=== PATIENT | male | born 1975 | race Caucasian/White ===

== ENCOUNTER 2023-02-11 09:28 | Inpatient (IN) | payer OTHER, SELFPAY ==
[2023-02-11] VITALS (14 sets, daily range): BP systolic 107–129; BP diastolic 65–99; PULSE 63–84; RESP 13–27; TEMP 36.3–36.6; O2SAT 95–100; BMI 32.7
--- NOTE | ~2023-02-11 | CT_ITS ---
EXAMINATION: CT abdomen pelvis w con DATE: 02/11/2023 11:37 INDICATION: Generalized abdomen pain. Elevated white blood cell count. TECHNIQUE: Computed tomography (CT) of the abdomen and pelvis was performed with 100 cc Omnipaque 350 intravenous contrast. The dose-length product was 1131.05 mGy-cm. Automated exposure control and ite rative reconstruction technique were employed. COMPARISON: None. FINDINGS: Lung bases are unremarkable. Heart size normal. No significant pleural or pericardial effus ion. No significant vascular abnormality. No lymphadenopathy. Linear wedge-shaped area of geographic hypodensity in the spleen is present. No perisplenic fluid col lections. Fatty infiltration of the liver. The pancreas, adrenal glands and kidneys are unremarkable. No significant hydronephrosis. Gallbladder is present. Colonic diverticulosis without evidence for d iverticulitis. Gallbladder is present. No free air or free fluid. Mild wedge-shaped deformity of the T12 and L1 vertebral, likely chronic. Mild lumbar spondylosis. IMPRESSION: 1. Geographic area of hypodensity of the spleen with wedge-shaped appearance. Differential diagnosis includes splenic infarction, infection and less likely posttraumatic laceration. 2: Hepatic steatosis. Reviewed, dictated and finalized at location B. IMPRESSION: 1. Geographic area of hypodensity of the spleen with wedge-shaped appearance. D ifferential diagnosis includes splenic infarction, infection and less likely po sttraumatic laceration. 2: Hepatic steatosis.
[2023-02-11 10:14] LABS: Appearance Urine Clear (Clear); Bilirubin Urine Negative (Negative); Blood Urine Negative (Negative); Color Urine Yellow (Yellow); Glucose Urine UA Negative (Negative); Ketones Urine Negative (Negative); Leukocyte Esterase Ur Negative LEU/UL (Negative); Nitrate Urine Negative (Negative); Protein Urine Negative (Negative); Specific Grav Ur 1.016 (1.001-1.035); Urobilinogen Urine 0.2 mg/dL (<2.0); pH Urine 7.5 (5.0-9.0)
[2023-02-11 10:16] LABS: Basophils Percent Auto 0.2 % (0.2-1.2); Eosinophils Percent Auto 0.2 % (0-4.4); Hematocrit 44.8 % (42.0-52.0); Hemoglobin 15.2 g/dL (14.0-18.0); Immature Granulocyte Absolute 0.04 K/mm3 (0.00-0.031); Immature Granulocyte Percent A 0.3 % (0-0.5); Lymphocytes Absolute Auto 1.73 K/mm3 (0.9-3.2); Mean Corpuscular HGB Conc 33.9 g/dl (32-36); Mean Corpuscular Hemoglobin 28.5 pg (26-34); Mean Corpuscular Volume 84.1 fl (80-100); Mean Platelet Volume 9.2 fl (7.4-10.4); Monocytes Absolute Auto 0.8 K/mm3 (0.1-0.6); Monocytes Percent Auto 6.3 % (2.6-8.5); Neutrophils Absolute Auto 10.6 K/mm3 (1.3-6.7); Platelet Count Result 241 k/mm3 (150-375); Red Blood Count 5.33 M/mm3 (4.6-6.20); Red Cell Distribution Width 12.6 % (11.5-14.5); White Blood Count 13.3 K/mm3 (4.5-10.0)
[2023-02-11 10:23] LABS: Alanine Aminotransferase 43 U/L (6-50); Albumin Level 4.5 g/dL (3.5-5.1); Alkaline Phosphatase 58 U/L (38-126); Anion Gap 5 mmol/L (8-16); Aspartate Amino Transferase 82 U/L (17-59); Bilirubin,Total 1.5 mg/dL (0.2-1.3); Blood Urea Nitrogen 9 mg/dL (9-20); Calcium 8.9 mg/dL (8.4-10.2); Carbon Dioxide 29 mmol/L (22-30); Chloride 99 mmol/L (98-107); Estimated CRCL calculation 165 ml/min; Estimated Glomerular Filt Rate > 60; Glucose 120 mg/dL (65-110); Lipase 279 U/L (23-300); Potassium 3.9 mmol/L (3.4-5.0); Sodium 133 mmol/L (137-145)
--- NOTE | 2023-02-11 10:34 | ED.ABDPAIN ---
HPI - Abdominal Pain General Chief Complaint: Abdominal Pain Stated Complaint: abd pain, N/V/D Time Seen by Provider: 02/11/23 10:03 Source: patient Mode of arrival: ambulatory Limitations: no limitations History of Present Illness HPI narrative: Lucio is a 47 year old male patient presenting to the ER today with c/o abdomen pain, nausea,vomiting, and diarrhea since 3pm yesterday. Reports that he thinks he may have food poising from a beef jerky he ate around 2pm yesterday. Rates his pain currently a 10/27. Related Data Home Medications Medication Instructions Recorded Confirmed No Home Medications 02/11/23 02/11/23 Allergies Allergy/AdvReac Type Severity Reaction Status Date / Time No Known Allergies Allergy Verified 02/11/23 16:13 Review of Systems Review of Systems: All systems reviewed & are unremarkable except as noted in HPI and below PMFSH Past Medical History Medical History (Updated 02/11/23 @ 18:21 by Argentina Cortes PA-C) Hypothyroidism No longer medication. Surgical History Surgical History (Updated 02/11/23 @ 18:19 by Argentina Cortes PA-C) History of appendectomy History of hernia repair Family History Family History Mother Non-Hodgkins lymphoma Social History Social History (Updated 02/11/23 @ 18:19 by Argentina Cortes PA-C) Social History: Surrogate medical decision maker: Valorie Gentile, spouse. Code status: Full code. Smoking status: Never smoker Alcohol intake: never Substance use: never Lack of Transportation: No Lack of Food: Never True Current Housing: I Have Housing Concerned About Future Housing: No Difficulty Paying Gas/Electric Bills: No Difficulty Paying for Meds: No Currently Unemployed: No Education: Associate Degree Difficulty w/ Childcare or Family Care: No Spiritual care concerns: No Comments At the time of my signature, I reviewed and agree with the nursing past medical, surgical, social, and family history. There is no relevant family history pertinent to the patient complaint. Exam Const: General: healthy appearing, no acute distress and alert Nutritional Appearance: obese Orientation/consciousness: patient oriented x3 Limitations: no limitations HENMT: Head: normal to inspection Chest: Chest palpation & inspection: normal inspection of the chest Resp: Effort & Inspection: normal respiratory effort Auscultation: clear to auscultation bilaterally Cardio: Rate: regular rate Rhythm: regular rhythm Other: s1 and s2 normal GI: Other: Soft, pliable, non-distended,bowel sounds present in all four quadrants, no organomegly, general abdomen tenderness diffuse, no CVAT tenderness, Course Course Emergency Course: Portions of this record may have been created with voice recognition software. Vital Signs Vital signs: Vital Signs Temperature 36.3 C L 02/11/23 09:37 Pulse Rate 70 02/11/23 09:37 Respiratory Rate 18 02/11/23 09:37 Blood Pressure 109/87 02/11/23 09:37 Pulse Oximetry 100 02/11/23 09:37 Oxygen Delivery Room Air 02/11/23 09:37 Temperature 36.6 C 02/11/23 16:13 Pulse Rate 75 02/11/23 16:13 Respiratory Rate 16 02/11/23 16:13 Blood Pressure 119/72 02/11/23 16:13 Pulse Oximetry 97 02/11/23 16:13 Oxygen Delivery Room Air 02/11/23 16:20 Vital signs reviewed MDM - Abdominal Pain MDM Narrative Medical decision making narrative: At the time of visit patient is resting on the exam stretcher. Rates pain 6/10. CBC, CMP, UA, LIPASE, and CT abdomen performed. WBC is 13.3 with left sided shift, UA normal, sodium level 133, and AST elevated at [address] 1.5. CT showed possible splenic infarction vs infection. Contact [facility] and Dr. Baker and they accept patient for admission. Started heparin drip. Patient was given Toradol and zofran in the ED and this helped alleviate n
[2023-02-11 10:44] LABS: Add Urine Microscopic? NO
[2023-02-11] MEDS: SODIUM CHLORIDE 0.9% IV 1,000 ML 999 ML IV CONT (10:45)
[2023-02-11] MEDS: KETOROLAC 30 MG/ML VIAL (*BKC) IV PUSH (10:45)
[2023-02-11] MEDS: ONDANSETRON INJ 4 MG/2 ML VIAL IV PUSH (10:45)
--- NOTE | 2023-02-11 13:45 | PC.NURSE ---
This patient, Lucio Gentile, was admitted to [facility] Surg Room 309-01. Patient/family oriented to hospital policies and general routines including ID bracelet, bed and alarms, visiting hours, pain management, procedures, bathroom and other care routines, personal items, smoking policy, room service/diet, and visiting hours. Information on how to activate the Rapid Response Team has been discussed. Patient/Family are encouraged to report perceived risks to care and to ask questions if they do not understand what they are told or what they should do.
[2023-02-11 13:59] LABS: Influenza A QL RT-PCR Negative (Negative); Influenza B QL RT-PCR Negative (Negative); SARS-CoV-2 RNA PCR Negative (Negative)
[2023-02-11] MEDS: HEPARIN SOD/D5W 100 UNITS/ML 25,000 UNITS/250 ML BAG 15 UNITS IV CONT (14:15)
[2023-02-11] MEDS: HEPARIN SODIUM 5,000 UNITS/ML VIAL 7500 UNITS IV PUSH ×2 (14:15→20:37)
[2023-02-11 14:33] LABS: INR 0.9; Prothrombin Time 12.9 Seconds (11.1-14.7)
[2023-02-11 14:34] LABS: Partial Thromboplastin Time 28.6 SECONDS (22.3-36.8)
--- NOTE | 2023-02-11 17:13 | PM.IMHP ---
H&P: HPI History of Present Illness Date/Time: 02/11/23 13:30 Chief Complaint: Abdominal pain. Narrative: This is a 47-year-old male with history of appendectomy, hernia repair, and hypothyroidism though no longer on medication who presented to the emergency department via private vehicle from home for evaluation of abdominal pain. The patient provides the following history. Yesterday afternoon he had some beef jerky and about an hour thereafter he developed indigestion and a pressure-like discomfort in the periumbilical region. He vomited not long thereafter and initially felt a bit better however the nausea persisted with dry heaves. He also had 1 to 2 episodes of nonbloody diarrhea but that has since resolved. He took Tylenol and Gaviscon which allowed him to get broken sleep. He was supposed to work last night though called off due to his symptoms. This morning he was still feeling poorly and he came in for evaluation. He reports feeling cold but he has not had any fevers or sweats. He denies hematemesis. No sick contacts. No recent falls or trauma In the ED: Vital signs were stable on arrival. Labs were significant for WBC count of 13.3, sodium 133, total bilirubin 1.5, AST 82, lipase to 79. UA was unremarkable. CT of the abdomen and pelvis showed hepatic steatosis in a geographic area of hypodensity of the spleen with wedge-shaped appearance with a differential to include splenic infarction, infection, and less likely posttraumatic laceration. ED provider discussed the case with Dr. Rosenberg who recommend starting the patient on a heparin drip. With further questioning the patient denies personal and family history of venous thromboembolism. He has not had any recent illnesses and specifically denies recent COVID infection. SARS-CoV-2 by PCR was negative. He denies palpitations and sensations of irregular heartbeat and has no known history of atrial fibrillation. Review of Systems Review of Systems: Twelve systems were reviewed and are negative except for as per HPI. [facility] Past Medical History Medical History Hypothyroidism No longer medication. Surgical History Surgical History History of appendectomy History of hernia repair Family History Family History Mother Non-Hodgkins lymphoma Social History Social History Social History: Surrogate medical decision maker: Valorie Gentile, spouse. Code status: Full code. Smoking status: Never smoker Alcohol intake: never Substance use: never Lack of Transportation: No Lack of Food: Never True Current Housing: I Have Housing Concerned About Future Housing: No Difficulty Paying Gas/Electric Bills: No Difficulty Paying for Meds: No Currently Unemployed: No Education: Associate Degree Difficulty w/ Childcare or Family Care: No Spiritual care concerns: No Meds Home Medications and Allergies Home Medications Medication Instructions Recorded Confirmed Type No Home Medications 02/11/23 02/11/23 History Allergies Allergy/AdvReac Type Severity Reaction Status Date / Time No Known Allergies Allergy Verified 02/11/23 16:13 Vital Signs Vital Signs - 24 hr 02/11/23 09:37 02/11/23 10:09 02/11/23 10:36 Temperature 97.4 F L Pulse Rate 70 63 74 Respiratory Rate 18 17 18 Blood Pressure 109/87 128/86 126/91 H Pulse Oximetry 100 97 99 Oxygen Delivery Room Air 02/11/23 11:25 02/11/23 12:06 02/11/23 12:26 Temperature Pulse Rate 65 75 68 Respiratory Rate 13 14 19 Blood Pressure 125/81 120/80 126/83 Pulse Oximetry 98 97 99 Oxygen Delivery 02/11/23 13:23 02/11/23 14:22 02/11/23 14:55 Temperature Pulse Rate 75 70 83 Respiratory Rate 17 18 14 Blood Pressure 112/82 129/82 112/99 H Pulse O
[2023-02-11] MEDS: SODIUM CHLORIDE 0.9% IV 1,000 ML 125 ML IV CONT (18:43)
[2023-02-11] MEDS: ACETAMINOPHEN 325 MG TABLET 650 MG PO (18:54)
[2023-02-11 20:29] LABS: Partial Thromboplastin Time 46.1 SECONDS (22.3-36.8)
[2023-02-11] MEDS: PIPERACILLN/TAZ 3.375GM/NS50ML 3.375 GM/50 ML BAG IVPB (20:42)
[2023-02-11 21:05] LABS: Procalcitonin 0.2 ng/mL
[2023-02-12] VITALS (10 sets, daily range): BP systolic 102–126; BP diastolic 70–74; PULSE 68–88; RESP 14–18; TEMP 36.2–36.9; O2SAT 95–98
[2023-02-12 02:48] LABS: Basophils Percent Auto 0.5 % (0.2-1.2); Eosinophils Absolute Auto 0.2 K/mm3 (0-0.3); Eosinophils Percent Auto 2.1 % (0-4.4); Hematocrit 40.4 % (42.0-52.0); Hemoglobin 13.6 g/dL (14.0-18.0); Immature Granulocyte Absolute 0.03 K/mm3 (0.00-0.031); Immature Granulocyte Percent A 0.4 % (0-0.5); Lymphocytes Absolute Auto 2.36 K/mm3 (0.9-3.2); Lymphocytes Percent Auto 29.2 % (18.3-44.2); Mean Corpuscular HGB Conc 33.7 g/dl (32-36); Mean Corpuscular Hemoglobin 28.5 pg (26-34); Mean Corpuscular Volume 84.5 fl (80-100); Mean Platelet Volume 9.1 fl (7.4-10.4); Monocytes Absolute Auto 0.7 K/mm3 (0.1-0.6); Monocytes Percent Auto 8.7 % (2.6-8.5); Neutrophils Absolute Auto 4.8 K/mm3 (1.3-6.7); Neutrophils Percent Auto 59.1 % (45.5-73.1); Platelet Count Result 169 k/mm3 (150-375); Red Blood Count 4.78 M/mm3 (4.6-6.20); White Blood Count 8.1 K/mm3 (4.5-10.0)
[2023-02-12 02:58] LABS: Anion Gap 4 mmol/L (8-16); Blood Urea Nitrogen 9 mg/dL (9-20); Calcium 8.1 mg/dL (8.4-10.2); Carbon Dioxide 29 mmol/L (22-30); Chloride 105 mmol/L (98-107); Estimated CRCL calculation 128 ml/min; Estimated Glomerular Filt Rate > 60; Glucose 107 mg/dL (65-110); Magnesium 2.3 mg/dL (1.6-2.3); Potassium 3.7 mmol/L (3.4-5.0); Sodium 138 mmol/L (137-145)
[2023-02-12 02:59] LABS: Partial Thromboplastin Time 75.4 SECONDS (22.3-36.8)
[2023-02-12] MEDS: HEPARIN SOD/D5W 100 UNITS/ML 25,000 UNITS/250 ML BAG 19 UNITS IV CONT (03:09)
[2023-02-12] MEDS: PIPERACILLN/TAZ 3.375GM/NS50ML 3.375 GM/50 ML BAG IVPB ×4 (03:10→21:06)
[2023-02-12 07:17] LABS: Free T4 Free Thyroxine Reflex 1.03 ng/dL (0.78-2.19)
--- NOTE | 2023-02-12 09:08 | PM.IMPN ---
Progress Note: A&P Assessment and Plan (1) Infarction of spleen: Code(s): D73.5 - Infarction of spleen Status: Acute Assessment and Plan: Presenting with abdominal pain, N/V/and diarrhea. CT abdomen shows area of hypodensity of the spleen with wedge-shaped appearance. Concerning for splenic infarction, infection, less likely post traumatic laceration. It also shows hepatic steatosis Hematology was consulted and recommended starting heparin drip He is also on Zosyn to cover for any potential infection. He did have a leukocytosis at 13 on admission. Expected DC this tomorrow P.r.n. Tylenol for pain and Zofran for nausea Time Spent With Patient Time: Feeding:regular diet Analgesia:tylenol Thromboembolic prophylaxis: heparin gtt Ulcer prophylaxis: n/a Glycemic control: n/a Bowel regimen: n/a Lines: PIV Antibiotics:Zosyn Subjective Date/time seen: 02/12/23 09:08 Interval history: HPI obtained from chart, This is a 47-year-old male with history of appendectomy, hernia repair, and hypothyroidism though no longer on medication who presented to the emergency department via private vehicle from home for evaluation of abdominal pain. The patient provides the following history. Yesterday afternoon he had some beef jerky in about an hour thereafter he developed indigestion and a pressure-like discomfort in the periumbilical region. He vomited not long thereafter and initially felt a bit better however the nausea with dry heaves. He also had 1 to 2 episodes of nonbloody diarrhea but that has since resolved. He took Tylenol and Gaviscon which allowed him to get broken sleep. He was supposed to work last night though called off due to his symptoms. This morning he was still feeling poorly and he came in for evaluation. He reports feeling cold but he has not had any fevers or sweats. He denies hematemesis. No sick contacts. No recent falls or trauma In the ED: Vital signs were stable on arrival. Labs were significant for WBC count of 13.3, sodium 133, total bilirubin 1.5, AST 82, lipase to 79. UA was unremarkable. CT of the abdomen and pelvis showed hepatic steatosis in a geographic area of hypodensity of the spleen with wedge-shaped appearance with a differential to include splenic infarction, infection, and less likely posttraumatic laceration. ED provider discussed the case with Dr. Rosenberg who recommend starting the patient on a heparin drip. With further questioning the patient denies personal and family history of venous thromboembolism. He has not had any recent illnesses and specifically denies recent COVID infection. SARS-CoV-2 by PCR was negative. He denies palpitations and sensations of irregular heartbeat and has no known history of atrial fibrillation. Interval history: 02/12-very pleasant gentleman seen at the bedside with his present. No acute events overnight. His abdominal pain has resolved and he is no longer having any nausea or vomiting. Dr. Rosenberg saw him today and recommends another day of IV heparin and transition to Eliquis tomorrow with likely discharge. He will need to follow-up with Daxa's office. He states that he has never had a clot before and has no clotting disorders in his family that he is aware of. His mother had a blood clot when she was receiving treatment for Hodgkin's lymphoma. Review of Systems Review of Systems: All systems reviewed & are unremarkable except as noted in HPI and below Exam Narrative: General: well appearing, well developed, well nourished, appears stated age. HEENT: normocephalic, atraumatic. Mucous membranes moist. EOMI, PERRLA, bilateral sclera anicteric, no conjunctival injection. Neck supple without JVD, lymphadenopathy, or bruit. Respiratory: clear to auscultation bilaterally. No rales/rhonic/wheezes. Cardiovascular: Regular rate and rhythm, normal S1-S2 upon auscultation. No murmurs, rubs, or clicks. PMI is nondisplaced, capillary re-fill less than 3
[2023-02-12 09:22] LABS: Total Triiodothyronine (T3) 1.08 NG/ML (0.97-1.69)
[2023-02-12 09:34] LABS: Partial Thromboplastin Time 59.9 SECONDS (22.3-36.8)
--- NOTE | 2023-02-12 17:28 | PDONCCN ---
HPI - Date of Consult Date/Time: 02/12/23 17:28 Requesting Physician: Jermain Ledezma MD Primary Care Provider: PHYSICIAN NOT ON STAFF - Consult Narrative Reason for consult: Hypercoagulable state with splenic infarction Narrative: Lucio Gentile is a 47 year old male without any history of previous hypercoagulable condition presented to the hospital with diffuse abdominal pain. He denies any recent injury trauma and surgery. He denies any use of recent testosterone replacement therapy. There is no family history of hypercoagulable condition.CT abdomen shows area of hypodensity of the spleen with wedge-shaped appearance. Concerning for splenic infarction, infection, less likely post traumatic laceration. It also shows hepatic steatosis. He has been starting on heparin drip. He is also using Tylenol for pain control and was started on Zosyn for potential infection. He is already feeling better. Review of Systems - Review of Systems All systems reviewed & are unremarkable except as noted in [facility] and [facility] Medical History: Medical History (Last Reviewed 02/12/23 @ 13:19 by Argentina Cortes PA-C) Hypothyroidism No longer medication. Surgical History: Surgical History (Last Reviewed 02/12/23 @ 13:19 by Argentina Cortes PA-C) History of appendectomy History of hernia repair Family History: Family History (Last Reviewed 02/12/23 @ 13:19 by Argentina Cortes PA-C) Mother Non-Hodgkins lymphoma - Social History Social History: Social History (Last Reviewed 02/12/23 @ 13:19 by Argentina Cortes PA-C) Alcohol Use: Alcohol intake: never Substance Use: Substance use: never Others: Spiritual care concerns: No Smoking Status: Smoking status: Never smoker Social Determinants of Health: Has the Lack of Transportation Kept You From Medical Appointments or From Getting Medications?: No Within the Past 12 Months, Were You Worried Whether Your Food Would Run Out Before You Got Money to Buy More?: Never True What is Your Housing Situation Today?: I Have Housing Are You Worried That in the Next 2 Months, You May Not Have Your Own Housing to Live In?: No Do You Have Trouble Paying Your Heating Or Electricity Bill?: No Do You Have Trouble Paying For Medicines?: No Are You Currently Unemployed and Looking for Work?: No Highest Level of Education Completed: Associate Degree Do You Have Trouble With Childcare or the Care of a Family Member?: No Exam - Vital Signs Vital Signs - 24 hr 02/11/23 21:38 02/11/23 20:00 02/12/23 00:00 Temperature 36.6 C Pulse Rate 68 84 70 Respiratory Rate 18 Blood Pressure 107/65 Pulse Oximetry 95 Oxygen Delivery 02/12/23 04:00 02/12/23 06:00 02/12/23 14:00 Temperature 36.9 C 36.2 C L Pulse Rate 80 76 69 Respiratory Rate 16 18 Blood Pressure 102/70 109/74 Pulse Oximetry 95 97 Oxygen Delivery 02/12/23 08:00 Temperature Pulse Rate Respiratory Rate Blood Pressure Pulse Oximetry 98 Oxygen Delivery Room Air - Exam HEENT: EOMI, PERRLA, mucous membranes moist and pink Neck: supple. No: JVD Lungs: clear to auscultation, normal air movement Heart: no murmurs, gallops, or rubs, regular rhythm, regular rate Abdomen: abdomen soft, non-distended, tender Extremities: normal pulses Integumentary: no abnormalities Neurological: normal speech Psychological: mental status NL, mood NL - Lab Results Laboratory Last Values WBC 8.1 K/mm3 (4.5-10.0) 02/12/23 02:40 RBC 4.78 M/mm3 (4.6-6.20) 02/12/23 02:40 Hgb 13.6 g/dL (14.0-18.0) L 02/12/23 02:40 Hct 40.4 % (42.0-52.0) L 02/12/23 02:40 MCV 84.5 fl (80-100) 02/12/23 02:40 MCH 28.5 pg (26-34) 02/12/23 02:40 MCHC 33.7 g/dl (32-36) 02/12/23 02:40 RDW 13.0 % (11.5-14.5) 02/12/23 02:40 Plt Count 169 k/mm3 (150-375) 02/12/23 02:40 MPV 9.1 fl (7.4-10.4)
[2023-02-12 17:47] LABS: Partial Thromboplastin Time 49.2 SECONDS (22.3-36.8)
[2023-02-12] MEDS: HEPARIN SOD/D5W 100 UNITS/ML 25,000 UNITS/250 ML BAG 23 UNITS IV CONT (17:53)
[2023-02-12] MEDS: HEPARIN SODIUM 5,000 UNITS/ML VIAL 7500 UNITS IV PUSH (18:00)
[2023-02-13] VITALS: PULSE 73
[2023-02-13 00:52] LABS: Partial Thromboplastin Time 60.5 SECONDS (22.3-36.8)
[2023-02-13] MEDS: HEPARIN SODIUM 5,000 UNITS/ML VIAL 3500 UNITS IV PUSH ×2 (01:04→06:54)
[2023-02-13] MEDS: HEPARIN SOD/D5W 100 UNITS/ML 25,000 UNITS/250 ML BAG 25 UNITS IV CONT (03:32)
[2023-02-13] MEDS: PIPERACILLN/TAZ 3.375GM/NS50ML 3.375 GM/50 ML BAG IVPB ×2 (03:34→08:42)
[2023-02-13 04:00] VITALS: PULSE 80
[2023-02-13 06:00] VITALS: BP 106/66; PULSE 53; RESP 14; TEMP 36.2; O2SAT 95
[2023-02-13 06:17] LABS: Basophils Percent Auto 0.4 % (0.2-1.2); Eosinophils Absolute Auto 0.2 K/mm3 (0-0.3); Eosinophils Percent Auto 3.1 % (0-4.4); Hematocrit 43.2 % (42.0-52.0); Hemoglobin 14.5 g/dL (14.0-18.0); Immature Granulocyte Absolute 0.02 K/mm3 (0.00-0.031); Immature Granulocyte Percent A 0.3 % (0-0.5); Lymphocytes Absolute Auto 2.19 K/mm3 (0.9-3.2); Lymphocytes Percent Auto 32.2 % (18.3-44.2); Mean Corpuscular HGB Conc 33.6 g/dl (32-36); Mean Corpuscular Volume 83.6 fl (80-100); Mean Platelet Volume 9.1 fl (7.4-10.4); Monocytes Absolute Auto 0.6 K/mm3 (0.1-0.6); Monocytes Percent Auto 8.8 % (2.6-8.5); Neutrophils Absolute Auto 3.8 K/mm3 (1.3-6.7); Neutrophils Percent Auto 55.2 % (45.5-73.1); Platelet Count Result 183 k/mm3 (150-375); Red Blood Count 5.17 M/mm3 (4.6-6.20); Red Cell Distribution Width 12.9 % (11.5-14.5); White Blood Count 6.8 K/mm3 (4.5-10.0)
[2023-02-13 06:25] LABS: Alanine Aminotransferase 49 U/L (6-50); Albumin Level 4.1 g/dL (3.5-5.1); Alkaline Phosphatase 58 U/L (38-126); Anion Gap 6 mmol/L (8-16); Aspartate Amino Transferase 68 U/L (17-59); Blood Urea Nitrogen 10 mg/dL (9-20); Calcium 8.7 mg/dL (8.4-10.2); Carbon Dioxide 29 mmol/L (22-30); Chloride 103 mmol/L (98-107); Estimated CRCL calculation 128 ml/min; Estimated Glomerular Filt Rate > 60; Glucose 107 mg/dL (65-110); Potassium 3.6 mmol/L (3.4-5.0); Sodium 138 mmol/L (137-145)
[2023-02-13 06:27] LABS: Partial Thromboplastin Time 68.1 SECONDS (22.3-36.8)
[2023-02-13 08:00] VITALS: PULSE 70
[2023-02-13] MEDS: ACETAMINOPHEN 325 MG TABLET 650 MG PO (08:52)
[2023-02-13 09:12] VITALS: O2SAT 95
--- NOTE | 2023-02-13 12:22 | PM.DS ---
DS: Admitting Diagnosis Discharge Date 02/13/23 Admitting Diagnosis Splenic infarct DS: Discharge Diagnosis Discharge Diagnosis (1) Infarction of spleen: Code(s): D73.5 - Infarction of spleen Status: Acute DS: Summary Hospital Course Hospital Course: This is a 47-year-old male with a past medical history of appendectomy, hernia repair and hypothyroidism that no longer requires medication the presented to the ED on 02/11/2023 due to abdominal pain. Patient did have some nausea and vomiting associated with the abdominal pain. He also had 1-2 episodes of nonbloody diarrhea. CT abdomen pelvis revealing hepatic steatosis and hypodensity of the spleen with wedge-shaped appearance with differential to include splenic infarct, infection and less likely post traumatic laceration. The ED doctor discussed the case with case fitter and patient was started on heparin drip. Patient does have a family history of venous thromboembolisms. He has not had a recent infection. Oncology consulted on the case. Patient's symptoms improved with anticoagulation. Plan on discharging patient on Eliquis to follow-up with oncology and 6-[address] scan. Time Spent with Patient Time attestation: Total time spent providing and/or coordinating discharge services: Exam Narrative: GENERAL: Comfortable, no acute distress HENMT: moist mucous membranes EYES: EOM intact b/l NECK: no lymphadenopathy RESPIRATORY: clear to auscultation CARDIO: RRR GI: soft, nontender, bowel sounds present SKIN: no rashes EXTREMITIES: no edema, redness or tenderness DS: Data Data Completed and Pending Labs on day of discharge: Labs from last 24 hours 02/13/23 02/13/23 02/12/23 06:07 00:19 17:16 WBC 6.8 RBC 5.17 Hgb 14.5 Hct 43.2 MCV 83.6 MCH 28.0 MCHC 33.6 RDW 12.9 Plt Count 183 MPV 9.1 Immature Gran % (Auto) 0.3 Neut % (Auto) 55.2 Lymph % (Auto) 32.2 Warrick % (Auto) 8.8 H Eos % (Auto) 3.1 Baso % (Auto) 0.4 Lymph # (Auto) 2.19 Warrick # (Auto) 0.6 Eos # (Auto) 0.2 Baso # (Auto) 0.0 Abs Immat Gran (auto) 0.02 Absolute Neuts (auto) 3.8 Absolute Nucleated RBC 0.0 Nucleated RBC % 0.0 APTT 68.1 H 60.5 H 49.2 H Sodium 138 Potassium 3.6 Chloride 103 Carbon Dioxide 29 Anion Gap 6 L BUN 10 Creatinine 0.80 Estim Creat Clear Calc 128 Estimated GFR > 60 Glucose 107 Calcium 8.7 Total Bilirubin 1.0 AST 68 H ALT 49 Alkaline Phosphatase 58 Total Protein 7.0 Albumin 4.1 Preliminary micro results at discharge 02/11/23 20:08 Blood Culture - Preliminary Blood Gram positive bacilli isolated 02/11/23 20:04 Blood Culture - Preliminary Blood Discharge Plan Discharge Attending physician on discharge: Luther Robert Consulting providers: Darshan Rosenberg; Salas Ellis Discharging Clinician: Bambi Wing Patient Disposition: Home, Self-Care Activity: as tolerated Diet: regular Discharge Instructions: Anticoagulation Medication: Please take medication as prescribed Do not stop medication before talking to your doctor Bleeding risk is increased while taking medications like aspirin or NSAIDs like ibuprofen or naproxen If you fall or hurt herself or hurt your head, call your doctor right away. You may bleed more easily. Be careful to avoid injury. Discuss this drug with your doctor before undergoing any type of surgery or procedure Discharge disposition: Take medications as prescribed Monitor blood pressures Avoid social areas, you wear a mask when in social settings Encouraged to continue with yearly vaccinations Return to the emergency department if he developed sudden shortness of breath, chest pain, nausea, vomiting, upset stomach or intractable diarrhea Return to the emergency department if you develop fever greater than 100.4 Follow-up with the primary care physi
[2023-02-13 13:23] LABS: Partial Thromboplastin Time 89.4 SECONDS (22.3-36.8)
[2023-02-13 14:00] VITALS: BP 122/80; PULSE 70; RESP 16; TEMP 35.9; O2SAT 96
--- NOTE | 2023-02-19 07:34 | PC.NURSE ---
Blood culture shows Bacillus Species, not B anthracis, in anaerobic bottle only. Jenifer Wing PA-C aware of findings.
== END 2023-02-13 15:05 | disposition home or self-care (01) | DRG 816 ==
LOC: ANHED 13:43 → ANH3MEDSUR 15:56
PROVIDERS: Emergency Medicine; Nurse Practitioner Acute Care; Physician Assistant; Admitting Provider Internal Medicine; Emergency Provider Nurse Practitioner Family; Visit Provider Internal Medicine Critical Care Medicine
DX: D73.5 Infarction of spleen (principal); E86.0 Dehydration; E03.9 Hypothyroidism, unspecified; K76.0 Fatty (change of) liver, not elsewhere classified; Z20.822 Contact with and (suspected) exposure to COVID-19
CPT/HCPCS: 36415; 74177; 80048; 80053; 81003; 83690; 83735; 84145; 84439; 84443; 84480; 85025; 85610; 85730; 87040; 87077; 87636; 96361; 96374; 96375; 99285; A9270; J1644; J1885; J2405; J2543; J7030; Q9967

== ENCOUNTER 2023-05-01 15:50 | Outpatient (CLI) | payer OTHER, SELFPAY ==
[2023-05-05 00:14] LABS: Antithrombin III Activity 96 % normal (80-135)
[2023-05-05 20:47] LABS: Lupus dRVVT Screen 39 sec (<=45); PTT-LA Screen 30 sec (<=40)
[2023-05-06 22:57] LABS: Factor V (Leiden) Mutation POSITIVE
== END 2023-05-01 15:51 | disposition home or self-care (01) ==
LOC: ANHLAB 15:53
PROVIDERS: Visit Provider Internal Medicine Hematology & Oncology
DX: D73.5 Infarction of spleen (principal)
CPT/HCPCS: 36415; 81240; 81241; 85300; 85303; 85306; 85613; 85730